=== PATIENT | female | born 1985 ===

== ENCOUNTER 2017-08-07 18:08 | Emergency (ER) | payer MEDICAID, OTHER ==
[2017-08-07] MEDS ORDERED: Sodium Chloride 0.9% 1,000 ML IV STA (18:27)
[2017-08-07] MEDS ORDERED: Iohexol 300 100 ML IJ ONE (19:16)
[2017-08-07] MEDS ORDERED: Sodium Chloride 0.9% 100 ML ONE (19:16)
[2017-08-07 19:32] LABS: BASO % 0.3 % (0.0-2.0); EOS # 0.1 K/uL (0.0-0.7); EOS % 1.2 % (0.0-4.0); HEMOGLOBIN 11.5 g/dL (12.0-16.0); LYMPH # 2.5 K/uL (1.0-4.3); LYMPH % 38.4 % (20.0-40.0); MEAN CELL VOLUME 82.2 fl (81.0-99.0); MEAN CORPUSCULAR HEMOGLOBIN 26.1 pg (27.0-31.0); MEAN CORPUSCULAR HGB CONC 31.8 g/dL (33.0-37.0); MEAN PLATELET VOLUME 9.5 fl (7.2-11.7); MONO # 0.5 K/uL (0.0-0.8); MONO % 8.2 % (0.0-10.0); NEUT # 3.3 K/uL (1.8-7.0); NEUT % 51.9 % (50.0-75.0); NRBC % 0.2 % (0.0-0.0); RBC 4.39 Mil/uL (3.80-5.20); WHITE BLOOD COUNT 6.4 K/uL (4.8-10.8)
--- NOTE | 2017-08-07 19:42 | ED PDOC ---
HPI: Abdomen Time Seen by Provider: 08/07/17 18:18 Chief Complaint (Nursing): Abdominal Pain Chief Complaint (Provider): Abdominal Pain History Per: Patient History/Exam Limitations: no limitations Onset/Duration Of Symptoms: Days (x1) Current Symptoms Are (Timing): Still Present Quality Of Discomfort: "Pain" Associated Symptoms: denies: Fever, Chills, Nausea, Vomiting, Diarrhea Exacerbating Factors: None Alleviating Factors: None Additional Complaint(s): 32 year old female presents to the ED complaining of intermittent right sided abdominal pain x1 day. Denies nausea, vomiting, diarrhea, fever. FAMILY PROVIDER,NO Abnormal Vaginal Bleeding: No Past Medical History Reviewed: Historical Data, Nursing Documentation, Vital Signs Vital Signs: Last Vital Signs Temp 98.0 F 08/07/17 21:52 Pulse 66 08/07/17 21:52 Resp 18 08/07/17 21:52 BP 107/69 08/07/17 21:52 Pulse Ox 98 08/07/17 22:28 - Medical History PMH: No Chronic Diseases - Surgical History Other surgeries: Tubal ligation - Family History Family History: States: Unknown Family Hx - Social History Current smoker - smoking cessation education provided: No Ex-Smoker (has not smoked in the last 12 months): No Alcohol: Social Drugs: Denies - Home Medications Home Medications: Ambulatory Orders Medication Instructions Recorded Naproxen [Naprosyn] 500 mg PO BID PRN #15 tablet 08/07/17 Nitrofurantoin Macrocrystals 100 mg PO BID #14 cap 08/07/17 [Macrobid] Phenazopyridine [Pyridium] 200 mg PO TID PRN #6 tab 08/07/17 - Allergies Allergies/Adverse Reactions: Allergies Allergy/AdvReac Type Severity Reaction Status Date / Time No Known Allergies Allergy Verified 08/07/17 18:13 Review of Systems ROS Statement: Except As Marked, All Systems Reviewed And Found Negative Constitutional: Negative for: Fever, Chills Gastrointestinal: Positive for: Abdominal Pain. Negative for: Nausea, Vomiting , Diarrhea, Constipation Genitourinary Female: Negative for: Dysuria Physical Exam - Physical Exam Appears: Positive for: Non-toxic, In Acute Distress (mild) Head Exam: Positive for: ATRAUMATIC, NORMAL INSPECTION, NORMOCEPHALIC Skin: Positive for: Normal Color, Warm, Dry. Negative for: Rash Eye Exam: Positive for: Normal appearance, EOMI, PERRL. Negative for: Nystagmus Neck: Positive for: Normal, Painless ROM, Supple Cardiovascular/Chest: Positive for: Regular Rate, Rhythm, Chest Non Tender. Negative for: Tachycardia Respiratory: Positive for: Normal Breath Sounds. Negative for: Rales, Rhonchi, Wheezing, Respiratory Distress Gastrointestinal/Abdominal: Positive for: Bowel Sounds, Soft, Other (right sided pain lateral and superior to the umbilicus). Negative for: Tenderness, Mass, Guarding, Rebound Back: Positive for: Normal Inspection. Negative for: L CVA Tenderness, R CVA Tenderness Extremity: Positive for: Normal ROM. Negative for: Tenderness, Deformity, Swelling - Laboratory Results Result Diagrams: 08/07/17 19:21 08/07/17 19:21 - ECG O2 Sat by Pulse Oximetry: 98 (RA) Pulse Ox Interpretation: Normal Medical Decision Making Medical Decision Makin Initial Impression 32 year old female presenting with abdominal pain Differentials: Cholecystitis, Appendicitis, Colitis Initial Plan: * CT ABD & PELV IV Contrast * CMP * Lipase * Upreg * Udip * CBC * PTT * Prothrombin Time * Morphine 2mg IV * NS 1000ml IV 1000mls/hr * Urinalysis * Reevaluaton 2127 EXAM: CT Abdomen and Pelvis With Intravenous Contrast CLINICAL HISTORY: 32 years old, female; Pain; Abdominal pain; Localized; Right; Patient HX: Tubal ligation 2014; Additional info: R lateral umbilical pain TECHNIQUE: Axial computed tomography images of the abdomen and pelvis with intravenous contrast. All CT scans at this facility use one or more dose reduction techniques, viz.: automated exposure control; ma/kV adjustment per patient size (including targeted exams where dose is matched to indication; i.e. head); or iterative reconstruction technique. Coronal and sagittal reformatted images were created and reviewed. CONTRAST: 98 mL of OMNIPAQUE administered intravenously. COMPARISON: No relevant prior studies available. FINDINGS: Lower thorax: Minimal atelectasis/scarring. ABDOMEN: Liver: Fatty infiltration. Gallbladder and bile ducts: Gallstones. No significant ductal dilation. Pancreas: No ductal dilation. No mass. Spleen: No splenomegaly. Adrenals: No mass. Kidneys and ureters: No mass. No hydronephrosis. Stomach and bowel: No definite mural thickening. No obstruction. Appendix: Normal caliber. No definite inflammation. PELVIS: Bladder: Unremarkable. Reproductive: 1.5 x 1.1 x 0.8 cm peripherally enhancing hypodensity with crenulated margins within RIGHT ovary. ABDOMEN and PELVIS: Intraperitoneal space: Trace free fluid within pelvis. No free air. Bones/joints: No acute fracture. Soft tissues: Tiny umbilical hernia containing fat. Vasculature: Unremarkable. No aneurysm. Lymph nodes: No pathologically enlarged lymph nodes. IMPRESSION: 1. Involuting or ruptured RIGHT ovarian follicle/cyst. 2. Cholelithiasis. 3. Incidental/non-acute findings are described above. Findings discussed in detail with patient and significant other, questions answered, advised to follow-up with PMD ([facility]) and Outside Property Agent for reevaluation. Copy of labs and imaging given to patient. Documented by Mindy Sam acting as a scribe for Karol Love MD. All medical record entries made by the Scribe were at my direction and personally dictated by me. I have reviewed the chart and agree that the record accurately reflects my personal performance of the history, physical exam, medical decision making, and the department course for this patient. I have also personally directed, reviewed, and agree with the discharge instructions and disposition. Disposition - Clinical Impression Clinical Impression: Cholelithiasis, Ruptured ovarian cyst, UTI (urinary tract infection) - Disposition Referrals: [facility] [Outside] [facility] [Outside] Disposition: Routine/Home Disposition Time: 22:26 Condition: IMPROVED Prescriptions: Naproxen [Naprosyn] 500 mg PO BID PRN #15 tablet PRN Reason: Pain, Moderate (4-7) Nitrofurantoin Macrocrystals [Macrobid] 100 mg PO BID #14 cap Phenazopyridine [Pyridium] 200 mg PO TID PRN #6 tab PRN Reason: Bladder Spasm Instructions: Urinary Tract Infections in Adults, Ovarian Cysts, Gallstones Forms: English TV (Nepali) Print Language: CAMEROONIAN
[2017-08-07 19:53] LABS: ALB/GLOB RATIO 1.4 (1.0-2.1); ALBUMIN 4.3 g/dL (3.5-5.0); ALT/SGPT 20 U/L (9-52); AST/SGOT 28 U/L (14-36); BLOOD UREA NITROGEN 10 mg/dl (7-17); CALCIUM 9.1 mg/dL (8.4-10.2); GFR AFRICAN-AMERICAN > 60; GFR NON-AFRICAN AMERICAN > 60; LIPASE 79 U/L (23-300)
[2017-08-07 19:55] LABS: INR 1.2 (0.9-1.2); PARTIAL THROMBOPLASTIN TIME 29.2 Seconds (25.6-37.1); PROTHROMBIN TIME 13.2 Seconds (9.8-13.1)
[2017-08-07] MEDS ORDERED: Potassium Chloride 20 mEq ER Tab PO STA (19:57)
[2017-08-07] MEDS ORDERED: Potassium Chloride 20 mEq ER Tab PO ONE (20:19)
--- NOTE | 2017-08-07 21:28 | CT ---
EXAM: CT Abdomen and Pelvis With Intravenous Contrast CLINICAL HISTORY: 32 years old, female; Pain; Abdominal pain; Localized; Right; Patient HX: Tubal ligation 2014; Additional info: R lateral umbilical pain TECHNIQUE: Axial computed tomography images of the abdomen and pelvis with intravenous contrast. All CT scans at this facility use one or more dose reduction techniques, viz.: automated exposure control; ma/kV adjustment per patient size (including targeted exams where dose is matched to indication; i.e. head); or iterative reconstruction technique. Coronal and sagittal reformatted images were created and reviewed. CONTRAST: 98 mL of OMNIPAQUE administered intravenously. COMPARISON: No relevant prior studies available. FINDINGS: Lower thorax: Minimal atelectasis/scarring. ABDOMEN: Liver: Fatty infiltration. Gallbladder and bile ducts: Gallstones. No significant ductal dilation. Pancreas: No ductal dilation. No mass. Spleen: No splenomegaly. Adrenals: No mass. Kidneys and ureters: No mass. No hydronephrosis. Stomach and bowel: No definite mural thickening. No obstruction. Appendix: Normal caliber. No definite inflammation. PELVIS: Bladder: Unremarkable. Reproductive: 1.5 x 1.1 x 0.8 cm peripherally enhancing hypodensity with crenulated margins within RIGHT ovary. ABDOMEN and PELVIS: Intraperitoneal space: Trace free fluid within pelvis. No free air. Bones/joints: No acute fracture. Soft tissues: Tiny umbilical hernia containing fat. Vasculature: Unremarkable. No aneurysm. Lymph nodes: No pathologically enlarged lymph nodes. IMPRESSION: 1. Involuting or ruptured RIGHT ovarian follicle/cyst. 2. Cholelithiasis. 3. Incidental/non-acute findings are described above.
[2017-08-07 21:53] VITALS: BP 107/69; PULSE 66; RESP 18; TEMP 98
[2017-08-07 22:25] VITALS: O2SAT 98
[2017-08-08 00:05] LABS: SQUAMOUS EPITHIAL 1 /hpf (0-5); URINE BACTERIA RARE (<OCC); URINE BILIRUBIN NEGATIVE (NEGATIVE); URINE BLOOD SMALL (NEGATIVE); URINE CLARITY CLEAR (Clear); URINE COLOR YELLOW (YELLOW); URINE GLUCOSE (UA) NEG (Normal); URINE LEUKOCYTE ESTERASE NEG Leu/uL (Negative); URINE PROTEIN NEGATIVE (NEGATIVE); URINE UROBILINOGEN 0.2-1.0 mg/dL (0.2-1.0)
== END 2017-08-07 21:57 | disposition home or self-care (01) ==
LOC: H.ER 18:08
DX: K80.20 Calculus of gallbladder without cholecystitis without obstruction (principal); N39.0 Urinary tract infection, site not specified; Z98.51 Tubal ligation status; Z87.891 Personal history of nicotine dependence; N83.201 Unspecified ovarian cyst, right side
CPT/HCPCS: 74177; 80053; 81003; 81025; 83690; 85025; 85610; 85730; 87086; 96374; 99284; J2270; J7040; Q9967